=== PATIENT | male | born 1980 | race Caucasian/White ===

== ENCOUNTER 2016-08-01 07:00 | Emergency (ER) | payer BC, OTHER ==
[~2016-08-01] VITALS: Ht 182.9 cm; Wt 83.9 kg
--- NOTE | ~2016-08-01 | EKG ---
[address] [place] [address] ELECTROCARDIOGRAM REPORT Name: RAMON ORTIZ Room #: DEP Briseyda#: [id number] Admission: 08/01/16 Attend Phys: Discharge: 08/01/16 Date of : 78 Report #: [id number] THIS REPORT FOR: //name// [facility] ED Test Date: 2016-08-01 Test Time: 07:04:58 Pat Name: RAMON ORTIZ Department: Room: Gender: Supervisor Coffee: BALBINA Stapleton : 1980 Requested By: Nury Moon Order Number: [id number] MD: Anshu Hadley Measurements Intervals [place] Rate: 110 P: 70 IL: 199 QRS: 68 QRSD: 103 T: 62 QT: 318 QTc: 431 Interpretive Statements Sinus tachycardia Borderline prolonged IL interval Probable left atrial enlargement ST elev, probable normal early repol pattern Compared to ECG 06/05/2013 20:02:57 ST (T wave) deviation now present Sinus rhythm no longer present Sinus arrhythmia no longer present Electronically Signed On 08-01-2016 13:20:42 CDT by Anshu Hadley [email or web address] <ELECTRONICALLY SIGNED> By: Anshu Hadley MD 08/01/16 1320 [id number] [id number] Anshu Hadley MD /EPI
[~2016-08-01 07:00] MED LIST: AMBIEN 5 MG TABL5 M1 PO; ATIVAN0.5 MG PO; COLACE100 MG PO; FISH OIL 1,001000 M2 PO; LAMICTAL XR200 MG PO; LISINOPRIL-HCT1 EAC2 PO; MOBIC15 MG; NORCO 10-325 T1 EACH PO; NORVASC5 MG PO; OXYCODONE HCL 55 MG; SENNA LAXATIVE1 EACH PO; TEGRETOL XR100 MG PO; TEGRETOL200 MG PO; TRINATE TABLET1 TAB PO; TYLENOL325 MG PO; VITAMIN B-1100 M1 PO
[2016-08-01 07:35] LABS: HEMATOCRIT 41.8 % (42.0-52.0); HEMOGLOBIN 14.6 gm/dL (14.0-18.0); MCH 33.3 pg (26.0-34.0); MCHC 34.8 g/dL (28.0-37.0); MCV 95.9 fL (80.0-100.0); PLATELET COUNT 214 thou/uL (150-400); RBC 4.37 mil/uL (4.50-6.00); RDW 13.1 % (10.5-14.5); WBC 10.2 thou/uL (4.0-11.0)
[2016-08-01 07:38] LABS: ANION GAP 11 mmol/L (7-16); BUN 7 mg/dL (7-18); CALCIUM 8.6 mg/dL (8.5-10.1); CHLORIDE 98 mmol/L (98-107); CO2 27 mmol/L (21-32); CREATININE 0.7 mg/dL (0.7-1.3); GLUCOSE 95 mg/dL (74-106); POTASSIUM 3.6 mmol/L (3.5-5.1); SODIUM 136 mmol/L (136-145)
[2016-08-01 07:39] LABS: MANUAL DIFF YES
[2016-08-01 07:46] LABS: TROPONIN-I < 0.04 ng/mL (<0.04-0.07)
[2016-08-01 08:35] LABS: ABSOLUTE NEUTROPHILS 8.3 thou/uL (1.4-8.2); PLATELET ESTIMATE NORMAL; TOTAL CELL COUNT 100
== END 2016-08-01 09:54 | disposition home or self-care (01) ==
LOC: ER 07:00
PROVIDERS: Emergency Medicine
DX: R07.89 Other chest pain (principal); F17.210 Nicotine dependence, cigarettes, uncomplicated; F15.10 Other stimulant abuse, uncomplicated; F10.99 Alcohol use, unspecified with unspecified alcohol-induced disorder; G89.29 Other chronic pain; M54.5 Low back pain

== ENCOUNTER → 2016-10-27 | Outpatient (CLI) | payer BC, OTHER | LOC: CAT 18:50 | DX: J18.9 Pneumonia, unspecified organism (principal); J90 Pleural effusion, not elsewhere classified; J98.11 Atelectasis ==

== ENCOUNTER → 2016-11-03 | Outpatient (CLI) | payer BC, OTHER ==
--- NOTE | ~2016-11-03 | CNG ---
[facility] [place] [address] CYTO-NONGYN REPORT PROCEDURE Name: RAMON HOSKINS Room #: REG [facility] AlexisCarlos.#: [id number] Admission: 11/03/16 Date of : 78 Discharge: Report #: [id number] Path Case #: [id number] CYTOPATHOLOGY REPORT COLLECTION DATE: 11/03/2016 RECEIVED DATE: 11/03/2016 SUBMITTING PHYS: Dr. Florin Schmidt OTHER PHYS: Dr. Brian Salmeron CLINICAL HISTORY: Pleural effusion. SPECIMEN(S) RECEIVED: A.Pleural fluid * * * * * * * * * * * * FINAL DIAGNOSIS: A. Pleural fluid: - No malignant epithelial cells identified. Paucicellular specimen with rare mesothelial cells and acute and chronic inflammatory cells, predominantly lymphocytes and likely peripheral blood elements, present in a background of blood and debris. PATHOLOGIST: Jayashree Nguyen M.D. REPORT ELECTRONICALLY SIGNED BY: Jayashree Nguyen M.D. DATE/TIME: 11/06/2016 15:19 * * * * * * * * * * * * GROSS PATHOLOGY: A. Pleural fluid: The specimen is submitted unfixed, labeled "Ramon Hoskins". Received by the Cytology Department is 15 mL of cloudy red fluid. One ThinPrep slide and a formalin fixed cell block were prepared. (clt 11.03.2016) BOBBIN DRIER(S): BETH Emmanuel([facility]) INITIAL CPT CODE(S): A; 14482, 99442 Professional services performed by [facility] at [facility] [address], [place] [address] Technical services performed by [facility] at [address] [place] [address]., [address], [place] [address]. [facility] [address] [place] [address], [address] [facility] [address] [place] [address] CYTO-NONGYN REPORT PROCEDURE Name: RAMON HOSKINS Room #: REG CLI Esperanza.#: [id number] Admission: 11/03/16 Date of : 78 Discharge: Report #: [id number] Path Case #: [id number] [address] [address] PHONE: [phone] DIRECTOR: Brown Bolden M.D. * * * END OF REPORT * * *
[2016-11-03 09:12] LABS: HEMATOCRIT 34.2 % (42.0-52.0); HEMOGLOBIN 11.7 gm/dL (14.0-18.0); MCH 30.4 pg (26.0-34.0); MCHC 34.3 g/dL (28.0-37.0); MCV 88.7 fL (80.0-100.0); RBC 3.86 mil/uL (4.50-6.00); RDW 15.9 % (10.5-14.5); WBC 5.6 thou/uL (4.0-11.0)
[2016-11-03 09:24] LABS: CALCIUM 8.9 mg/dL (8.5-10.1); CREATININE 0.5 mg/dL (0.7-1.3); POTASSIUM 4.5 mmol/L (3.5-5.1)
[2016-11-03 11:07] LABS: CLARITY CLOUDY; COLOR RED; MANUAL DIFF YES; TOTAL VOLUME 60 mL
[2016-11-03 12:26] LABS: BF NUCLEATED CELLS 1017; BF RBC 99082
[2016-11-03 13:51] LABS: BF MACROPHAGE 23; BF NEUTROPHILS 14
[2016-11-05 05:40] LABS: BODY FLUID ALBUMIN 2.7 g/dL (()); BODY FLUID AMYLASE 34 U/L (()); BODY FLUID GLUCOSE 79 mg/dL (()); BODY FLUID LDH 437 IU/L (()); BODY FLUID PROTEIN 4.9 g/dL (())
== END | disposition home or self-care (01) ==
LOC: CV 06:36 → LABMALL 07:51 → CV 10:19
PROVIDERS: Internal Medicine Pulmonary Disease
DX: J90 Pleural effusion, not elsewhere classified (principal); R06.02 Shortness of breath

== ENCOUNTER → 2016-11-13 | Outpatient (CLI) | payer BC, OTHER ==
--- NOTE | ~2016-11-13 | 2DMMODE ---
[facility] [place] [address] 2 D/M-MODE ECHOCARDIOGRAM Name: RAMON ORTIZ Room #: REG CL [facility]#: [id number] Admission: 11/13/16 Attend Phys: Florin Schmidt Discharge: Date of : 78 Date of Service: 11/13/16 1046 Report #: [id number] THIS REPORT FOR: //name// APPROVED REPORT Study performed: 11/13/2016 09:02:02 EXAM: Comprehensive 2D, Doppler, and color-flow Echocardiogram Patient Location: Echo lab Status: routine BSA: 2.04 BP: 147/92 mmHg Other Information Study Quality: Adequate Indications Pulmonary Hypertension 2D Dimensions RVDd: 32.95 mm LVEF(%): 58.46 (>50%) IVSd: 9.04 (7-11mm) LVOT Diam: 19.08 (18-24mm) LVDd: 51.98 mm PWd: 10.26 (7-11mm) Ascending Ao: 26.66 (22-36mm) LVDs: 35.82 (25-40mm) Aortic Root: 28.67 mm IVC: 14.00 mm Valenzuela's LVEF: 58.46 % Volumes Left Atrial Volume (Systole) Single Plane 4CH: 45.76 mL Single Plane 2CH: 42.83 mL Aortic Valve AoV Peak Yoni.: 1.37 m/s AO Peak Gr.: 7.46 mmHg LVOT Max P.19 mmHg LVOT Mean P.00 mmHg LVOT Max V: 1.02 m/s CAROL Vmax: 2.14 cm2 Mitral Valve MV Decel. Time: 179.52 ms MV E Max Yoni.: 0.87 m/s IVRT: 76.12 ms [facility] [place] [address] [place] [address] 2 D/M-MODE ECHOCARDIOGRAM Name: RAMON ORTIZ Room #: REG [facility]#: [id number] Admission: 11/13/16 Attend Phys: Florin Schmidt Discharge: Date of : 78 Date of Service: 11/13/16 1046 Report #: [id number] Pulmonary Valve PV Peak Ynoi.: 1.02 m/s PV Peak Gr.: 4.20 mmHg Tricuspid Valve RAP Estimate: 5.00 mmHg Left Ventricle The left ventricle is normal size. There is normal left ventricular wall thickness. The left ventricular systolic function is normal. The left ventricular ejection fraction is within the normal range. LVEF is 55%. This study is not technically sufficient to allow evaluation of the LV diastolic function. Right Ventricle The right ventricle is normal size. The right ventricular systolic function is normal. Atria The left atrium size is normal. The right atrium size is normal. Aortic Valve The aortic valve is normal in structure. No aortic regurgitation is present. There is no aortic valvular stenosis. Mitral Valve The mitral valve is normal in structure. There is no mitral valve regurgitation noted. No evidence of mitral valve stenosis. Tricuspid Valve The tricuspid valve is normal in structure. Trace tricuspid regurgitation. Unable to assess PA pressure. Pulmonic Valve The pulmonary valve is normal in structure. Trace pulmonic regurgitation. Great Vessels The aortic root is normal in size. IVC is normal in size and collapses >50% with inspiration. <Conclusion> The left ventricle is normal size. LVEF is 55%. The aortic valve is normal in structure. [facility] [place] [address] 2 D/M-MODE ECHOCARDIOGRAM Name: DIANARAMON KELLY [facility] #: [id number] Admission: 11/13/16 Attend Phys: Florin Schmidt Discharge: Date of : 78 Date of Service: 11/13/16 1046 Report #: [id number] The mitral valve is normal in structure. The pulmonary valve is normal in structure. Trace pulmonic regurgitation. <ELECTRONICALLY SIGNED> By: Nimesh Roland MD 11/13/16 1046 104 Nimesh Roland MD /INF
== END ==
LOC: CV 07:55
DX: I27.20 Pulmonary hypertension, unspecified (principal)

== ENCOUNTER → 2016-11-29 | Outpatient (CLI) | payer BC, OTHER | LOC: RAD 12:41 | DX: R91.8 Other nonspecific abnormal finding of lung field (principal) ==

== ENCOUNTER → 2017-03-06 | Day surgery (SDC) | payer BC, OTHER ==
[~2017-03-06] VITALS: Ht 182.9 cm; Wt 88.5 kg
[~2017-03-06] MED LIST changes: +HYDROCHLOROTHIA25 M2 PO; +HYDROXYCHLOROQ200 M1 PO; +LISINOPRIL40 MG PO; -MOBIC15 MG; +MOBIC15 MG PO; -OXYCODONE HCL 55 MG; +OXYCODONE HCL 55 MG PO
--- NOTE | ~2017-03-06 | EKG ---
[address] [address] ELECTROCARDIOGRAM REPORT Name: RAMON ORTIZ Room #: 150-4 [facility].#: [id number] Admission: 03/06/17 Attend Phys: Jarred Spears MD, F Discharge: Date of : 78 Report #: [id number] THIS REPORT FOR: //name// [facility] Test Date: 2017-03-06 Test Time: 06:26:21 Pat Name: RAMON ORTIZ Department: Room: 150 4 Gender: M Global Marketing Coordinator: KELI : 1980 Requested By: Jarred Spears Order Number: [id number] MD: Anshu Hadley Measurements Intervals [place] Rate: 106 P: 57 FL: 171 QRS: 80 QRSD: 100 T: 10 QT: 336 QTc: 447 Interpretive Statements Sinus tachycardia Probable left atrial enlargement Left ventricular hypertrophy Compared to ECG 08/01/2016 07:04:58 Left ventricular hypertrophy now present ST (T wave) deviation no longer present Electronically Signed On 03-06-2017 8:14:44 CERTIFIED PESTICIDE APPLICATOR by Anshu Hadley [email or web address] <ELECTRONICALLY SIGNED> By: Anshu Hadley MD 03/06/17813 5 5 Anshu Hadley MD /JANE
[2017-03-06 06:41] VITALS: BP 134/92
[2017-03-06 07:09] LABS: CALCIUM 8.6 mg/dL (8.5-10.1); CREATININE 0.6 mg/dL (0.7-1.3)
== END | disposition home or self-care (01) ==
LOC: OR 05:19 → TBA 05:19 → OR 05:20 → TBA 05:20 → OR 08:52
PROVIDERS: Surgery
DX: R22.31 Localized swelling, mass and lump, right upper limb (principal); Z85.3 Personal history of malignant neoplasm of breast; F17.210 Nicotine dependence, cigarettes, uncomplicated; I10 Essential (primary) hypertension; F41.8 Other specified anxiety disorders; Z79.899 Other long term (current) drug therapy

== ENCOUNTER → 2017-03-08 | Outpatient (CLI) | payer BC, OTHER | LOC: RAD 16:29 | DX: R06.02 Shortness of breath (principal) ==

== ENCOUNTER → 2017-09-12 | Outpatient (CLI) | payer BC, OTHER | LOC: RAD 18:39 | DX: J90 Pleural effusion, not elsewhere classified (principal) ==

== ENCOUNTER 2018-05-06 09:57 | Emergency (ER) | payer OTHER ==
[~2018-05-06] VITALS: Ht 182.9 cm; Wt 88.0 kg
[2018-05-06 09:58] VITALS: BP 140/94
== END 2018-05-06 10:40 | disposition home or self-care (01) ==
LOC: ER 09:57
DX: S61.210D Laceration without foreign body of right index finger without damage to nail, subsequent encounter (principal); W26.9XXD Contact with unspecified sharp object(s), subsequent encounter; M54.5 Low back pain; G89.29 Other chronic pain; I10 Essential (primary) hypertension; F41.9 Anxiety disorder, unspecified; F17.210 Nicotine dependence, cigarettes, uncomplicated

== ENCOUNTER 2018-05-13 09:03 | Emergency (ER) | payer OTHER ==
[~2018-05-13] VITALS: Ht 182.9 cm; Wt 83.9 kg
[2018-05-13 10:35] VITALS: BP 160/112
== END 2018-05-13 10:20 | disposition home or self-care (01) ==
LOC: ER 09:03
DX: S61.210D Laceration without foreign body of right index finger without damage to nail, subsequent encounter (principal); L93.2 Other local lupus erythematosus; F17.210 Nicotine dependence, cigarettes, uncomplicated; M41.9 Scoliosis, unspecified; M54.5 Low back pain; G89.29 Other chronic pain; I10 Essential (primary) hypertension; F41.9 Anxiety disorder, unspecified; X58.XXXD Exposure to other specified factors, subsequent encounter

== ENCOUNTER 2018-05-20 09:05 | Emergency (ER) | payer OTHER ==
[~2018-05-20] VITALS: Ht 182.9 cm; Wt 83.9 kg
[2018-05-20 10:56] VITALS: BP 137/96
== END 2018-05-20 10:18 | disposition home or self-care (01) ==
LOC: ER 09:05
DX: S61.211D Laceration without foreign body of left index finger without damage to nail, subsequent encounter (principal); G89.29 Other chronic pain; M41.9 Scoliosis, unspecified; I10 Essential (primary) hypertension; F17.210 Nicotine dependence, cigarettes, uncomplicated; X58.XXXD Exposure to other specified factors, subsequent encounter

== ENCOUNTER → 2019-03-07 | Outpatient (CLI) | payer OTHER | LOC: MRI 13:16 | DX: M51.16 Intervertebral disc disorders with radiculopathy, lumbar region (principal); M12.88 Other specific arthropathies, not elsewhere classified, other specified site; M51.27 Other intervertebral disc displacement, lumbosacral region; M25.78 Osteophyte, vertebrae; M46.06 Spinal enthesopathy, lumbar region; M48.061 Spinal stenosis, lumbar region without neurogenic claudication ==

== ENCOUNTER 2019-03-15 18:48 | Emergency (ER) | payer OTHER ==
[~2019-03-15] VITALS: Ht 182.9 cm; Wt 84.4 kg
[2019-03-15 19:50] VITALS: BP 139/90
== END 2019-03-15 19:46 | disposition home or self-care (01) ==
LOC: ER 18:48
DX: R04.0 Epistaxis (principal); I10 Essential (primary) hypertension; M54.5 Low back pain; G89.29 Other chronic pain; F41.9 Anxiety disorder, unspecified; F17.210 Nicotine dependence, cigarettes, uncomplicated

== ENCOUNTER → 2019-10-20 | Outpatient (CLI) | payer OTHER | LOC: LAB 09:04 | PROVIDERS: ATTEND Neuromusculoskeletal Medicine & OMM | DX: R05 Cough (principal); R50.9 Fever, unspecified; Z20.828 Contact with and (suspected) exposure to other viral communicable diseases ==